=== PATIENT | male | born 1995 | race African-American/Black ===

== ENCOUNTER 2025-03-20 16:52 | Emergency (ER) | payer MEDICAID, SELFPAY ==
--- NOTE | ~2025-03-20 | CT_ITS ---
CLINICAL HISTORY: LLQ pain back pain. Kidney stones colitis CT abdomen and pelvis without contrast Comparison: None provided Findings: The lung bases are clear. Unremarkable gallbladder and solid organs. Left kidney midpole 8 mm nonobstructing stone. No hydronephrosis. No bowel obstruction, pneumoperitoneum, or pneumatosis. Pelvic contents unremarkable. Normal appendix. The bones are intact. IMPRESSION: No acute findings. Left kidney midpole 8 mm nonobstructing stone. No hydronephrosis bilaterally. This document has been electronically signed by: Abigail Moreland MD on 03/20/2025 20:41:36
[2025-03-20 17:02] VITALS: BP 131/71; PULSE 76; RESP 18; TEMP 36.4; O2SAT 99; BMI 28.8
--- NOTE | 2025-03-20 17:03 | ED.GENADULT ---
HPI - General Adult General Chief complaint: Back Pain/Injury Stated complaint: back pain Time Seen by Provider: 03/20/25 19:24 Source: patient Mode of arrival: ambulatory Limitations: no limitations History of Present Illness ED Provider: Elvis Rogers HPI narrative: 29 yold teofilohty male presents to the ED for left sided back/flank pain radiating to leg groin after lifting heavy boxes 2 weeks ago. patient denies any nuasea, vomitting, fever, chils, trauma, dysuira, hematuria, urinary/bowel incontinence, IV drug use, or paralysis numbness of lower extremity. Related Data Previous Rx's ?Medication ?Instructions ?Recorded cyclobenzaprine 10 mg tablet 10 mg PO BEDTIME PRN muscle spasm 03/20/25 #7 tabs naproxen 500 mg tablet 500 mg PO BID PRN pain #14 tabs 03/20/25 tamsulosin 0.4 mg capsule (Flomax) 0.4 mg PO DAILY 7 days #7 caps 03/20/25 Allergies Allergy/AdvReac Type Severity Reaction Status Date / Time No Known Allergies Allergy Verified 03/20/25 17:08 Review of Systems Review of Systems: Left flank left lower back left groin pain after heavy lifting Yes all other systems are reviewed and are negative Physical Exam ED Vital Signs: Vital Signs - 24 hr 03/20/25 17:02 03/20/25 19:19 Temperature 97.6 F 97.5 F Pulse Rate 76 75 Respiratory Rate 18 16 Blood Pressure 131/71 122/73 Pulse Oximetry 99 100 Oxygen Delivery Method Room Air Room Air BMI result Body Mass Index 28.8 Const General: cooperative, healthy appearing, comfortable, no acute distress, well developed, alert and awake [facility] Head: Yes normal to inspection, Yes No palpable skull fracture present, Yes normocephalic and Yes atraumatic Eyes General: appearance normal, both eyes and all related structures Neck Neck: Yes normal visual inspection, Yes full ROM, Yes no lymphadenopathy, Yes no meningeal signs, Yes trachea midline, Yes supple, No anterior neck swelling and No tender Chest Chest palpation & inspection: normal inspection of the chest and normal palpation of entire chest wall Resp Effort & Inspection: normal respiratory effort Auscultation: clear to auscultation bilaterally Cardio Jugular venous distension: no JVD Heart sounds: S1 normal heart sound present and S2 normal heart sound present GI Inspection: Yes normal to inspection Palpation (GI): Soft to palpation, not firm, Tenderness to palpation present (GI) in the LLQ (mild), no guarding and not rigid General: Yes CVA tenderness (left mild) Penis: normal penis and uncircumcised Meatus: meatus normal Scrotum: scrotum normal Testes: Testes normal Back/Spine/Pelvis Back: CVA tenderness (left mild) Skin General skin exam: no rashes or lesions noted, elasticity normal and turgor normal Neuro General: gait normal, tone normal, moves all extremities, Normal light touch and pain sensation, no meningeal signs, no focal motor deficits, CN's II-XI intact bilaterally and normal sensation to monofilament Extrem General: Yes normal to inspection, Yes full ROM and Yes capillary refill normal Psych Appearance: grossly normal, well kempt and not disheveled Course Course Course Narrative: Rapid medical examination performed in triage by Theresa Tejada PA-C: Patient is a 29 year old assigned male at presenting to the emergency department with low back and flank pain. Detailed physical exam and review of systems are deferred to the group insurance specialist. Labs ordered. Patient placed back in the waiting room pending room availability and results. Medical Decision Making Medical Decision Making [facility] Narrative: 29-year-old male presents to ED for left-sided flank low back radiating to the groin after lifting heavy boxes. Patient denies any blunt trauma, IV drug use, urinary/bowel incontinence, or immunocompromise diseases. Patient denies any nausea vomiting fever and chills. Labs reassuring. Urine negative for infection. Kidney function is normal. Cat scan shows 8 mm stone in left mid pole kidney. Patient not in distress. Patient is comfortable playing on phone. Case was discussed with urologist Dr. Do who does not recommend any emergent intervention or inpatient, recommend follow-up outpatient. Patient is made aware of this. Patient explained worrisome signs. Not suspecting cauda equinus syndrome, epidural abscess, osteomyelitis, urosepsis, pyelonephritis, or any other life-threatening etiology Differential Diagnosis Differential Diagnoses: The differential diagnosis associated with the presentation includes (UTI, kidney stones, back sprain) Admission/Observation Consideration of admission/observation: Escalation of care including admission/observation considered Consult Healthcare Provider Management of the patient was discussed with: Passenger Solicitor (Dr. Do) Lab Data [facility] Lab Attestation statement: I reviewed the patient's lab results. 03/20/25 17:11 03/20/25 17:11 Labs: Lab Results 03/20/25 03/20/25 Range/Units 17:11 19:07 WBC 6.4 (4.8-10.8) X10*3/uL RBC 5.42 (4.60-5.80) X10*6/uL Hgb 14.7 (14.0-18.0) g/dl Hct 45.0 (42.0-52.0) % MCV 83.0 (80.0-98.0) fL MCH 27.1 (27.0-33.0) pg MCHC 32.7 (31.0-36.0) g/dl RDW 14.0 (11.0-16.0) % Plt Count 294 (160-400) X10*3/uL MPV 9.5 (9.4-12.4) fL Immature Gran % (Auto) 0.6 H (0.0-0.4) % Neut % (Auto) 49.9 (45-73) % Lymph % (Auto) 37.9 (20-40) % [place] % (Auto) 8.9 (2-11) % Eos % (Auto) 1.9 (0-4) % Baso % (Auto) 0.8 (0-2) % Lymph # (Auto) 2.4 (1.2-4.9) X10*3/uL [place] # (Auto) 0.6 (0.1-1.2) X10*3/uL Eos # (Auto) 0.1 (0.0-0.4) X10*3/uL Baso # (Auto) 0.1 (0.0-0.2) X10*3/uL Abs Immat Gran (auto) 0.04 H (0.00-0.03) X10*3/uL Absolute Neuts (auto) 3.2 (2.0-8.3) x10*3/uL Absolute Nucleated RBC 0.000 (0.0-0.012) X10*3/uL Nucleated RBC % (auto) 0.0 (0.0-0.2) /100WBC Sodium 140 (135-145) mmol/L Potassium 4.2 (3.3-5.1) mmol/L Chloride 105 (96-108) mmol/L Carbon Dioxide 26 (22-29) mmol/L Anion Gap 13 (12-20) BUN 10 (9-16) mg/dL Creatinine 1.00 (0.5-1.4) mg/dL Estim Creat Clear Calc 100.7 Estimated GFR > 60 Random Glucose 97 (60-115) mg/dL Calcium 9.2 (8.4-10.2) mg/dL Total Bilirubin 0.3 (0.0-1.0) mg/dL AST 18 (5-37) U/L ALT 19 (0-40) U/L Alkaline Phosphatase 74 (39-117) U/L Total Protein 7.6 (6.5-8.0) g/dL Albumin 4.5 (3.5-5.0) g/dL Urine Color Yellow Urine Appearance Clear Urine pH 8.0 (5.0-9.0) Ur Specific [place] 1.020 (1.005-1.025) Urine Protein Negative (Neg-Trace) mg/dL Urine Glucose (UA) Negative (Negative) mg/dL Urine Ketones Negative (Negative) mg/dL Urine Blood Negative (Negative) Urine Nitrite Negative (Negative) Ur Leukocyte Esterase Negative (Negative) Independent Interpretation I performed an independent interpretation of an: CT Scan Radiology Impression Discussion of test interpretation with radiology: I have reviewed the radiologist's reading. Independent Historian Clinical information obtained from an independent historian. History obtained from or confirmed by: Other (patient) Prescription Management I considered prescription management with: Pain Medication Discharge Plan Discharge Clinical Impression: Low back sprain, Kidney stone Patient Disposition: Home, Self-Care Instructions: Renal Colic (ED), Back Pain (ED), Ice Pack Application (ED), Cold Compress or Soak (ED) Additional Instructions: Recommend follow up with primary care provider and urologist. Return to the ED immediately for any abdominal pain, nausea, vomiting, flank pain, fever, chills, testicular pain, bloody urine, paralysis weakness of lower extremities, urinary/bowel incontinence, blood in urine, or any other concerning symptoms. Prescriptions: New naproxen 500 mg tablet 500 mg PO BID PRN (Reason: pain) Qty: 14 0RF cyclobenzaprine 10 mg tablet 10 mg PO BEDTIME PRN (Reason: muscle spasm) Qty: 7 0RF tamsulosin [Flomax] 0.4 mg capsule 0.4 mg PO DAILY 7 Days Qty: 7 0RF Referrals: [facility] [Provider Group, Urology] - 2 days Referral Note: Kidney stone Clinical Impression: Kidney stone Center[facility] [Primary Care Provider, Medical] - 2 days Referral Note: Back sprain Clinical Impression: Low back sprain Stand Alone Forms: Work/School Release Interventions: ED Discharge Assessment Last Done: 03/20/25 21:56 Discharge Date/Time: 03/20/25 22:04 Print Language: Thai
[2025-03-20 17:15] LABS: MANUAL DIFF FLAG NO
[2025-03-20 17:17] LABS: Hematocrit 45.0 % (42.0-52.0); Hemoglobin 14.7 g/dl (14.0-18.0); Imm Gran Abs Auto 0.04 X10*3/uL (0.00-0.03); Imm Gran Pct Auto 0.6 % (0.0-0.4); Lymphocytes Absolute Auto 2.4 X10*3/uL (1.2-4.9); Mean Corpuscular HGB Conc 32.7 g/dl (31.0-36.0); Mean Corpuscular Hemoglobin 27.1 pg (27.0-33.0); Mean Corpuscular Volume 83.0 fL (80.0-98.0); NRBC Abs Auto 0.000 X10*3/uL (0.0-0.012); NRBC Pct Auto 0.0 /100WBC (0.0-0.2); Platelet Count 294 X10*3/uL (160-400); Red Blood Count 5.42 X10*6/uL (4.60-5.80); White Blood Count 6.4 X10*3/uL (4.8-10.8)
[2025-03-20 17:29] LABS: Alanine Aminotransferase 19 U/L (0-40); Albumin Level 4.5 g/dL (3.5-5.0); Alkaline Phosphatase 74 U/L (39-117); Anion Gap 13 (12-20); Aspartate Amino Transferase 18 U/L (5-37); Blood Urea Nitrogen 10 mg/dL (9-16); Calcium 9.2 mg/dL (8.4-10.2); Carbon Dioxide 26 mmol/L (22-29); Chloride 105 mmol/L (96-108); Creatinine Clr Calc Pharmacy 100.7; Estimated Glomerular Filt Rate > 60; Potassium 4.2 mmol/L (3.3-5.1); Sodium 140 mmol/L (135-145); Total Protein 7.6 g/dL (6.5-8.0)
[2025-03-20 19:14] LABS: Appearance Urine Clear; Glucose Urine UA Negative (Negative); PH 8.0 (5.0-9.0); Specific Gravity - Urine 1.020 (1.005-1.025)
[2025-03-20 19:19] VITALS: BP 122/73; PULSE 75; RESP 16; TEMP 36.4; O2SAT 100
--- OUTSIDE RECORDS SUMMARY | 2025-03-20 21:43 | XMS_ITS | Clinical Summary ---
Author Organization [employer] Address [address] [place] [address] Care Team Providers Care Beauty Culture Teacher Name Role Phone Unavailable Primary Care Provider Unavailabl e Social History Tobacco Use Types Packs/Day Years Used Date Smoking Tobacco: Never Assessed Sex and Gender Information Value Date Recorded Sex Assigned at Male 03/20/2025 4:18 PM EST Legal Sex Male 11:37 AM EST Gender Identity Male 03/20/2025 4:18 PM EST Sexual Orientation Not on file Plan of Treatment Health Maintenance Due Date Last Done Comments Depression Screening 1994 HIV Screening 1994 SDOH Screening 1994 Disability Screening 1994 Alcohol/Substance Use Screening 2006 Tobacco Screening 2006 Family Planning (PISQ) 2009 HPV Vaccines (1 - Male 3-dos e series) 2009 Hepatitis C Screening 2012 DTaP/Tdap/Td Vaccines (1 - Tdap) 2013 Hepatitis B Vaccines (1 of 3 - 19+ 3-dose series) 2013 COVID-19 Vaccine (1 - 2023-2 5 season) 2025 Influenza Vaccine (#1) 2025 Zoster Vaccines (1 of 2) 2044 RSV Patients and Pa tients Aged 60 years or older (1 - 1-dose 75+ series) 2069 HIB Vaccines Aged Out No longer eligi ble based on patient's age to complete this topic Hepatitis A Vaccines Aged Out No long er eligible based on patient's age to complete this topic IPV Vaccines Aged Out No longer eligi ble based on patient's age to complete this topic Meningococcal B Vaccine Aged Out No l onger eligible based on patient's age to complete this topic Meningococcal Vaccine Aged Out No denice mikhail eligible based on patient's age to complete this topic Pneumococcal Vaccine: Pediat rics (0 to 5 Years) and At-Risk Patients (6 to 49) Years Aged Out No longer eligible b ased on patient's age to complete this topic RSV under 20 months Aged Out No longe r eligible based on patient's age to complete this topic Rotavirus Vaccines Aged Out No longer eligible based on patient's age to complete this topic
[2025-03-20 21:56] VITALS: BP 122/73; PULSE 75; RESP 16; TEMP 36.4; O2SAT 100
== END 2025-03-20 22:04 | disposition home or self-care (01) ==
PROVIDERS: Physician Assistant Medical; Emergency Provider Emergency Medicine
DX: S33.5XXA Sprain of ligaments of lumbar spine, initial encounter (principal); X50.0XXA Overexertion from strenuous movement or load, initial encounter; X50.9XXA Other and unspecified overexertion or strenuous movements or postures, initial encounter; Y93.9 Activity, unspecified; Y92.9 Unspecified place or not applicable; N20.0 Calculus of kidney
CPT/HCPCS: 36415; 74176; 80053; 81003; 85025; 99283

== ENCOUNTER → 2025-03-20 19:54 | Outpatient (BNV) | payer MEDICAID, SELFPAY | PROVIDERS: Emergency Provider Emergency Medicine; Visit Provider Student in an Organized Health Care Education/Training Program | DX: N20.0 Calculus of kidney (principal) | CPT/HCPCS: 74176 ==

== ENCOUNTER 2025-04-27 13:05 | Outpatient (AMB) | payer MEDICAID, SELFPAY ==
--- NOTE | 2025-04-27 13:13 | MHC.OFFVIS ---
Intake Visit Reasons: Kidney stones SET UA Intake Note: Reason for Visit: New Patient is present for Kidney Stones Urology Meds: Tamsulosin Blood Thinners: None Antibiotic Allergy: None Labs: None Imaging: Abd/Pel CT 03/20/2025 Last PVR: None Family History Prostate Cancer? No Bladder Cancer? No Previous Urology? no Front End Developer Required: No Accompanied by: Self / Same As Patient Allergies No Known Allergies Allergy (Verified 04/27/25 13:16) HPI Comments Details: Domingo is a pleasant male. He is seen for the following urologic conditions - kidney stone Nephrolithiasis Seen in emergency room for pain secondary to activity and lifting CT scan small stone left side Encouraged to increase fluid intake and use lemon water 1 year follow-up renal ultrasound Review of Systems Const Denies chills and Denies fever(s) Card Reports no additional complaints and Denies syncope Resp Denies cough GI Denies abdominal pain and Denies heartburn Reports as per HPI and Denies change in libido Neuro Denies syncope Psych Denies change in libido Endo Denies change in libido Physical Exam Const General: cooperative, healthy appearing, comfortable and no acute distress Orientation/consciousness: patient oriented x3 HEENT Face and sinus: Yes normal facial exam Mouth: moist mucous membranes Neck Neck: Yes normal visual inspection, Yes full ROM and Yes trachea midline Chest Chest palpation & inspection: normal inspection of the chest Resp Effort & Inspection: normal respiratory effort, able to speak in complete sentences and no respiratory distress GI Inspection: Yes normal to inspection Back/Spine/Pelvis Cervical Spine: normal cervical lordosis Thoracic/Lumbar Spine: thoracic and lumbar spine normal to inspection Skin General skin exam: no rashes or lesions noted Neuro General: patient oriented x3, gait normal, tone normal and moves all extremities Extrem General: Yes normal to inspection and Yes capillary refill normal Assessment & Plan Assessment & Plan (1) Kidney stone: Code(s): N20.0 - Calculus of kidney Category: Medical Plan Twelve month follow-up Orders: Orders US renal BI 12 Months N20.0 - Calculus of kidney Patient Instructions: This note is constructed using voice recognition software. While every effort has been made to ensure accuracy wind energy systems installer errors may have been included. Imaging studies, laboratory and physical exam results were discussed and reviewed in detail. No major barriers to patient understanding were identified. An opportunity to ask questions regarding the treatment plan was provided. All questions were answered. The patient expressed understanding and agreement with the above treatment plan. The patient is aware they should contact our office by phone for worsening of their current condition or the appearance of new urologic symptoms. Compliance is encouraged with any medications and followup testing that is ordered. It is a privilege to participate in the urologic care of your patient. If you have any questions or concerns regarding treatment for the above conditions, or other urologic issues, please do not hesitate to contact me. The office telephone contact is [phone]. Sincerely, Dr Terell Do MD, [facility] - Urology Compassionate Specialist Care for the Genitourinary System Coding Level of Care Code New Pt Level 3 (71913) Diagnoses Kidney stone N20.0
--- OUTSIDE RECORDS SUMMARY | 2025-04-27 17:01 | XMS_ITS | Clinical Summary ---
Author Organization [employer] Address [address] [place] [address] [address] [place] [address] Care Team Providers Care Electronic Lab Technician Name Role Phone Unavailable Primary Care Provider [...] 3-dose series) 2013 COVID-19 Vaccine (1 - 2024-2 6 season) 2025 Influenza Vaccine (#1) 2025 Zoster [...]
== END 2025-04-27 14:33 | disposition home or self-care (01) ==
LOC: HO.HUSH 13:05
PROVIDERS: Visit Provider Urology
DX: N20.0 Calculus of kidney (principal)
CPT/HCPCS: 99203

== ENCOUNTER → 2025-04-27 13:05 | Outpatient (BNVA) | payer MEDICAID, SELFPAY | PROVIDERS: Visit Provider Urology | DX: N20.0 Calculus of kidney (principal) | CPT/HCPCS: 99202 ==